=== PATIENT | male | born 1965 | race Caucasian/White ===

== ENCOUNTER 2019-10-17 13:05 | Emergency (ER) | payer OTHER ==
[~2019-10-17] VITALS: Ht 175.3 cm; Wt 97.5 kg
[2019-10-17] MEDS ORDERED: KEFLEX500 M1 PO (13:44)
[2019-10-17 14:18] VITALS: BP 141/70
== END 2019-10-17 14:19 | disposition home or self-care (01) ==
LOC: M.ERS 13:05
DX: S61.411A Laceration without foreign body of right hand, initial encounter (principal); W26.8XXA Contact with other sharp object(s), not elsewhere classified, initial encounter; Y93.89 Activity, other specified; Y92.89 Other specified places as the place of occurrence of the external cause; Y99.8 Other external cause status